=== PATIENT | female | born 1955 | race Caucasian/White ===

== ENCOUNTER 2017-11-07 21:02 | Emergency (ER) | payer BC, SELFPAY ==
[2017-11-07 21:08] VITALS: BP 145/74; PULSE 68; RESP 18; TEMP 36.8; O2SAT 100
== END 2017-11-08 01:25 | disposition left against medical advice (07) ==
PROVIDERS: PCP Physician Assistant Medical
DX: R21 Rash and other nonspecific skin eruption (principal)
CPT/HCPCS: 99281; 99282

== ENCOUNTER → 2020-06-15 16:05 | Outpatient (CLI) | payer BC, SELFPAY | PROVIDERS: Visit Provider Physician Assistant | DX: R30.0 Dysuria (principal); N30.01 Acute cystitis with hematuria | CPT/HCPCS: 87077; 87086; 87147; 87210 ==

== ENCOUNTER → 2020-08-28 17:30 | Outpatient (CLI) | payer BC, SELFPAY ==
--- NOTE | 2020-08-28 17:32 | DI.MRI.S_ITS ---
PROCEDURE: MR THORACIC SPINE WO CON INDICATIONS: PERSONAL HISTORY OF HEALED TRAUMATIC FRACTURE TECHNIQUE: Noncontrast sagittal T1 spine echo and T2 fast spin echo, sagittal STIR, axial T1 and T2 fast spin echo through the thoracic spine. COMPARISON: None. FINDINGS: Image quality: Excellent. Alignment and Curvature: There is mild diffuse thoracic kyphosis. Bone Marrow: Marrow is of normal overall signal there is moderate wedging of the T11 vertebral body which demonstrates linear low T2 signal intensity traversing its inferior endplate, with moderate surrounding ill-defined STIR signal elevation. Spinal Cord: Visualized spinal cord is normal in size and signal. Paraspinous Soft Tissues: No paravertebral masses. Disc space levels: Multilevel disc desiccation is present. At T11-T12, there is mild diffuse disc bulge, causing mild canal stenosis. No significant foraminal stenosis.. IMPRESSION: 1. Moderate subacute T11 compression fracture. Dictated by: Adri Rogers M.D. on 08/31/2020 at 8:41 Approved by: Adri Rogers M.D. on 08/31/2020 at 8:46
== END ==
PROVIDERS: Referring Provider Internal Medicine; Visit Provider Internal Medicine
DX: Z09 Encounter for follow-up examination after completed treatment for conditions other than malignant neoplasm (principal); Z87.81 Personal history of (healed) traumatic fracture; M48.54XA Collapsed vertebra, not elsewhere classified, thoracic region, initial encounter for fracture
CPT/HCPCS: 72146

== ENCOUNTER → 2020-12-07 13:45 | Outpatient (CLI) | payer BC, SELFPAY ==
[2020-12-07 15:54] LABS: COVID19 -Nasal RAPID Negative (Negative)
== END ==
PROVIDERS: Referring Provider Physician Assistant; Visit Provider Physician Assistant
DX: R11.2 Nausea with vomiting, unspecified (principal); Z20.822 Contact with and (suspected) exposure to COVID-19
CPT/HCPCS: 87635

== ENCOUNTER 2022-09-08 08:13 | Day surgery (SDC) | payer BC, MEDICARE, SELFPAY ==
[2022-09-06 11:55] VITALS: BMI 32.7
[2022-09-08] VITALS (12 sets, daily range): BP systolic 97–161; BP diastolic 45–78; PULSE 61–88; RESP 12–18; TEMP 36.1–36.5; O2SAT 93–99; BMI 31.3
--- NOTE | 2022-09-08 | PATH_ITS ---
[facility] Accession Number: [id number] No. of containers..01 Tissue . 01 Material submitted: . uterus - UTERUS, TUBES AND OVARIES . 01 Diagnosis: Uterus, Bilateral Tubes and Bilateral Ovaries, Hysterectomy and Bilateral Salpingo-oophrectomy: Cervix with mild chronic inflammation; no dysplasia or malignancy. Endometrium with features of cystic atrophy; no atypical hyperplasia or malignancy. Unremarkable myometrium. Bilateral ovaries with physiological changes but no other significant diagnostic alterations. Complete cross-section of fimbriated bilateral fallopian tubes identified with no significant pathologic alterations. [facility] 09/13/2022 1530 Local . 01 Electronically signed: . Anay Peña MD, Pathologist NPI- [id number] . 01 Gross description: . The specimen is received in formalin labeled with the patient's name, , and uterus, tubes and ovaries, and consists of an intact uterus (42 grams, 7.0 SI, 4.4 mL, 2.5 APCM), with attached cervix (3.5 x 2.3 cm), with attached left fallopian tube (6.0 x 0.6 cm), and attached left ovary (2 grams, 2.2 x 1.4 x 0.7 cm), attached right fallopian tube (5.9 x 0.7 cm), and attached right ovary (3 grams, 2.9 x 1.5 x 0.7 cm). . The ectocervix is sheth and wrinkled with a slit-like cervical os measuring 0.7 cm in diameter. The serosa is sheth and smooth with a small area of hemorrhage measuring 0.7 cm in greatest dimension and no evidence of adhesion identified. The anterior paracervical margin is inked blue while the posterior paracervical margin is inked black. The endocervical canal measures 2.3 cm in length and has sheth herringbone mucosa. The endometrial cavity measures 1.6 cm from cornu to cornu and 3.6 cm in length with red velvety endometrium that averages 0.1 cm thick with no lesions grossly identified. The myometrium is sheth and trabecular measuring up to 1.1 cm in maximum thickness with no nodules or lesions identified. . The left fallopian tube has congested wrinkled serosa and is significant for an area of thinning measuring 1.5 cm in greatest dimension consistent with a completely disrupted lumen. No cystic structures are identified and sectioning reveals a disrupted stellate lumen. The left ovary has a sheth, cerebriform external surface and sectioning reveals an unremarkable, physiologic cut surface with no cysts or lesions identified. . The right fallopian tube has congested smooth serosa and is significant for an area of narrowing measuring 1.3 cm in greatest dimension possibly consistent with lumninal disruption. A pedunculated cystic structure is identified near the fimbriated end measuring 0.6 cm in greatest dimension. Sectioning reveals a disrupted stellate lumen. The right ovary has a sheth, cerebriform external surface and sectioning reveals an unremarkable, physiologic cut surface with no lesions or cystic structures identified. . [employer] sections are submitted as follows: A1: Anterior cervix. A2: Posterior cervix. A3: Anterior full thickness section. A4: Posterior full thickness section. A5: Serosa with area of hemorrhage. A6: Left fallopian tube to include one-half of bisected fimbriae and cross-sections. A7: Left ovary. A8: Right fallopian tube to include one-half of bisected fimbriae and cross-sections with cystic structure. A9: Right ovary. ([id number]) /PETER 09/09/2022 [facility] Local . 01 Pathologist provided ICD-10: N81.10, N81.6 . 01 CPT . 433056 Specimen Comment: A courtesy copy of this report has been sent to [phone] Performed at: 01 [facility]Pending sale to [facility] [address] [place] [address], [place], [place] [id number] MD Fred Jorge MD Phone: [phone]
[2022-09-08 08:42] LABS: COVID19 -Nasal RAPID Negative (Negative)
[2022-09-08] MEDS: LACTATED RINGERS 1,000 ML 42 ML IV ×2 (08:50→11:28)
[2022-09-08] MEDS: ACETAMINOPHEN 325 MG TABLET 975 MG PO (08:52)
--- NOTE | 2022-09-08 09:19 | PM.PREOP ---
Pre-operative Note COVID-19 Criteria for continued procedure: Non-surgical alternatives not available or appropriate per current SOC Interval Note History & Physical reviewed/Exam performed by Physician: Yes Changes to H&P: Yes H&P completed within 30 days and has changed as indicated here:: 08/23/22
[2022-09-08] MEDS: CEFAZOLIN 2 GM/100 ML PREMIX 100 ML IV (09:31)
--- NOTE | 2022-09-08 10:15 | SUR.OPER ---
Lithotomy on padded OR bed. Smack[place] Pad Positioner under torso. Head on pillow, arms padded and tucked at sides. Legs secured in padded yellow fins stirrups.
[2022-09-08] MEDS: BUPIVACAINE 0.5% (PF) 60 ML, EPINEPHrine 0.3 MG INJ (10:42)
--- NOTE | 2022-09-08 12:13 | PM.GYNOP.1 ---
Operative Date/Time/Diagnoses Date of procedure: 09/08/22 Time of procedure: 12:13 Pre-op diagnosis: Second-degree Uterine prolapse Third-degree cystocele Third-degree rectocele Post-op diagnosis: same Procedure & Clinicians Procedure: Procedures Operation Date: 09/08/22 09:45 Actual Procedure Side Surgeon p Laparoscopic Assisted Vaginal Hysterectomy w. salpingo-oophorectomy Yanira Degroot MD s Anterior/Posterior Repair with perinorraphy Yanira Degroot MD Indications: Symptomatic uterine prolapse, cystocele, and rectocele Surgeon: Yanira Degroot [employer] Courtesy Clerk: Antonette Santos Anesthesia Type: General and Local Operative Notes Findings: 5 week size anteverted uterus Tubes status post ligation bilaterally Normal ovaries Right lower quadrant adhesions Normal liver Closure Type: primary Specimen(s): left tube & ovary, right tube & ovary and uterus Applied: catheter (To continuous drainage) Estimated blood loss (mL): 50 Blood products transfused: none Procedure in detail: The patient was taken to the operating room where she was placed in the dorsal supine position. After adequate general endotracheal anesthesia was achieved, she was placed in the dorsal lithotomy position, and prepped and draped in the usual sterile fashion. A bivalve speculum was placed into the vagina, and a single-tooth tenaculum was placed on the anterior lip of the cervix. The cervical os was sequentially dilated until the ZUMI uterine manipulator could pass easily into the endometrial cavity. The single-tooth tenaculum was removed from the anterior lip of the cervix, and the bivalve speculum was removed from the vagina. Attention was then turned to the abdomen where 6 mL of half percent Marcaine with epinephrine were injected in the umbilical fold. A 5 mm incision was made. The Verees needle was placed into the peritoneal cavity, and its placement confirmed by aspiration and drop test. The abdominal cavity was insufflated with 4.2L of CO2. The Verees needle was removed, and a 5 mm trocar was placed without difficulty. Initial inspection of the pelvis revealed the findings noted above. 2 other incisions were made 4 cm lateral to the umbilicus. These were 5 mm incisions. Two 5mm trocars were placed under direct visualization. The right tube and ovary were grasped with an atraumatic grasper. The infundibulopelvic ligament on the right side was cauterized and cut with plasma kinetic. The round ligament and broad ligament were cauterized and cut. This was continued to the level of the uterine arteries. This was repeated on the patient's left side. The instruments were removed from the abdomen. Attention was then turned to the vagina where the ZUMI uterine manipulator was removed from the uterus. The cervix was grasped with a 4 tooth tenaculum. 10 mL of half percent Marcaine with epinephrine were injected circumferentially around the cervix. The cervix was circumscribed. The bladder and rectum were dissected off the lower uterine segment and cervix with an open moistened Ray-Alex. The peritoneum was entered sharply with the Metzenbaum scissors anteriorly and a Firebaugh placed. The peritoneum was entered posteriorly with the Metzenbaum scissors and the long weighted speculum was placed into the posterior cul-de-sac. The uterosacral cardinal ligament complexes were clamped, transected, and suture ligated with 0 Vicryl. These were attached to hemostat. The uterine arteries were clamped, transected, and suture ligated with 0 Vicryl. The uterus, tubes and ovaries were handed off for specimen. The vaginal cuff was closed with 0 Vicryl with a series of simple interrupted sutures. The tagged sutures were cut. 2 Allis clamps were placed at the apex of the cystocele. 6 mL of half percent Marcaine with epinephrine were injected and an incision was made with a #10 blade between the 2 Allis clamps. Wide Allis clamps were placed on the midline of the cystocele approximately 5. The mucosa was undermined using the Metzenbaum scissors and the mucosa incised in the midline moving the wide Allis clamps to the edges of the mucosa. The mucosa was dissected off the underlying fascia using an open moistened Ray-Alex and a #10 blade. The fascia was reapproximated with 0 Vicryl with a series of horizontal mattress sutures. The excess vaginal mucosa was excised. The mucosa was closed using simple interrupted sutures with 2-0 Vicryl including the underlying fascia to close the space. The weighted speculum was removed from the vagina. Allis clamps were placed at the mucocutaneous junction at the introitus. 6 mL of half percent Marcaine with epinephrine were injected. An incision was made with a #10 blade between the 2 Allis clamps, and a triangular piece of skin and underlying subcutaneous tissue was removed. Allis clamps were placed in the midline of the rectocele. 10 mL of half percent Marcaine with epinephrine were injected submucosally. The mucosa was undermined using the Metzenbaum scissors and the mucosa incised in the midline, moving the wide Allis clamps to the mucosal edges. The underlying fascia was dissected off of the mucosa using an open moistened Ray-Alex and a #10 blade. The fascia was reapproximated using 0 Vicryl with a series of horizontal mattress sutures. The excess vaginal mucosa was excised. The mucosa was closed using a series of simple interrupted sutures with 2-0 Vicryl including the underlying fascia to close the space. On the perineum 0 Vicryl was used to reapproximate the levator muscle. The subcutaneous layer was closed with 2-0 Vicryl. The skin was closed with 2-0 chromic in a subcuticular fashion. Hemostasis was achieved. A Betadine moistened vaginal pack was placed into the vagina. Attention was then turned the where re-insufflated with from back by gapTrendelenburg. The pelvis was examined and there was no bleeding noted. The area was irrigated. The instruments were removed from the abdomen. CO2 was allowed to escape. The trocars were removed. The incisions were closed with 4-0 Monocryl in a subcuticular fashion. Steri-Strips and Allevyn dressings were placed. A rectal exam was done and there were no sutures palpable in the rectum. The urine was clear. Sponge, lap, and instrument counts were correct x-2. The patient tolerated the procedure well, was taken to PACU in stable condition. Complications: none Post-operative Condition: stable Disposition: PACU Plan for aftercare: To acute care after recovery
--- NOTE | 2022-09-08 12:25 | SUR.PHASEI ---
to room 221. Report called to jordyn purcell. all belongings with patient.
[2022-09-08] MEDS: LACTATED RINGERS 1,000 ML 100 ML IV (12:47)
[2022-09-08] MEDS: IBUPROFEN 600 MG TABLET PO ×2 (12:51→17:29)
[2022-09-08] MEDS: ACETAMINOPHEN 325 MG TABLET 650 MG PO ×2 (12:51→17:29)
[2022-09-08] MEDS: OXYCODONE IR 5 MG TABLET PO ×3 (13:18→22:09)
[2022-09-08] MEDS: DOCUSATE 100 MG CAPSULE 200 MG PO (20:45)
[2022-09-08] MEDS: HYDROXYCHLOROQUINE 200 MG TABLET PO (20:45)
[2022-09-09] VITALS: BP 132/68; PULSE 65; RESP 17; TEMP 36.4; O2SAT 96
[2022-09-09] MEDS: IBUPROFEN 600 MG TABLET PO ×2 (00:24→06:16)
[2022-09-09] MEDS: ACETAMINOPHEN 325 MG TABLET 650 MG PO ×2 (00:24→06:16)
[2022-09-09 04:00] VITALS: BP 130/60; PULSE 67; RESP 16; TEMP 36.4; O2SAT 96
[2022-09-09 05:37] LABS: Add Manual Diff / Slide Review NO; Basophils Absolute Auto 0 /uL (0-100); Basophils Percent Auto 0.1 % (0-2); Eosinophils Absolute Auto 0 /uL (0-450); Hematocrit 34.5 % (36-46); Hemoglobin 11.6 g/dL (12.0-16.0); Lymphocytes Absolute Auto 400 /uL (1100-4500); Lymphocytes Percent Auto 3.1 % (25-40); Mean Corpuscular HGB Conc 33.8 % (30-36); Mean Corpuscular Volume 91.8 fL (80-100); Monocytes Absolute Auto 900 /uL (0-900); Monocytes Percent Auto 7.1 % (3-14); Neutrophils Absolute Auto 10800 /uL (1500-7000); Neutrophils Percent Auto 89.7 % (50-75); Platelet Count 188 X10^3/uL (150-400); Red Blood Cell Count 3.76 X10^6/uL (4.0-5.2); Red Cell Distribution Width 13.7 % (11.6-14.8); White Blood Cell Count 12.1 X10^3/uL (4.5-11.0)
[2022-09-09] MEDS: LEVOTHYROXINE 112 MCG TABLET PO (05:56)
[2022-09-09 06:00] LABS: BUN Creatinine Ratio 20.5 (6-22); Blood Urea Nitrogen 18 mg/dL (7-17); Calcium 8.8 mg/dL (8.4-10.2); Carbon Dioxide 25 mmol/L (22-32); Chloride 102 mmol/L (98-107); Estimated Glomerular Filt Rate > 60 mL/min (>60); Glucose 105 mg/dL (80-110); HEMOLYSIS < 15 (0-50); Potassium 4.4 mmol/L (3.4-5.1); Sodium 133 mmol/L (137-145)
--- NOTE | 2022-09-09 06:11 | PC.NURSE ---
0600: Putnam catheter and vaginal packing were removed. Small amount of blood noted on peripad; vaginal packing (1 long strip of gauze) noted with blood. Jena-care provided; pt attempted to void but was unable at this time.
[2022-09-09 08:36] VITALS: BP 125/58; PULSE 65; RESP 16; TEMP 36.3; O2SAT 94
--- NOTE | 2022-09-09 09:20 | PM.DS.1 ---
History of Present Illness History of Present Illness Date Patient Seen: 09/09/22 Time Patient Seen: 09:20 Chief complaint: LAVH w/anterior & posterior repair Narrative: Patient is a 67-year-old 2 para 2 who presents for preoperative exam for a laparoscopic-assisted vaginal hysterectomy with bilateral salpingo-oophorectomy, and an anterior and posterior repair. Discharge Providers Provider Date of admission: 09/08/2022 Discharge Date: 09/09/22 Primary care physician: Deysi Lozano PA-C Discharge provider: Stanley Leroy MD Summary Hospital Course Discharge Diagnosis: Symptomatic uterovaginal prolapse, incomplete Cystocele Rectocele Hospital Course: Ro was admitted on 09/08/2022 and underwent an uneventful laparoscopic-assisted vaginal hysterectomy with bilateral salpingo oophorectomy, anterior colporrhaphy, and posterior colporrhaphy. Details of the procedure well summarized on the operative note of Dr. Ne Degroot dated 09/08/2022. Following her surgery the patient has done extremely well with prompt return of bowel and bladder function, she is ambulating independently, tolerating regular diet, and her pain is well controlled oral pain medication. She will be discharged at this time to home after counseling regarding precautionary symptoms, limitations of activity, medications, and plans for follow-up will be in [address] Degroot. Medications at discharge will include resumption of all pre admission medications as well as oxycodone 5 mg every 4-6 hours as needed for pain. Post-void residual < 50 cc after 2nd spontaneous void following catheter removal. Status at Discharge Cognitive/behavioral status at discharge: oriented Functional status at discharge: independent ambulation Overall status at discharge: patient is progressing back to baseline Time Spent with Patient Time spent: Less than 30 minutes Exam Vital Signs (past 8 hours): - 09/09/22 04:00 09/09/22 08:36 Temperature 97.6 F 97.4 F L Pulse Rate 67 65 Respiratory Rate 16 16 Blood Pressure 130/60 125/58 L Pulse Oximetry 96 94 Oxygen Flow Rate 0 Oxygen Delivery Method Room Air Oxygen Flow Rate 0 Const General: cooperative and comfortable Nutritional Appearance: average body habitus Orientation: alert and oriented x3 HENMT Head: normal to inspection, atraumatic and abrasion Ears: hearing grossly normal bilaterally Face and sinus: face symmetric Eyes General: appearance normal, both eyes and all related structures Conjunctivae: conjunctivae normal Sclera: sclerae normal EOM: EOM intact bilaterally Neck Neck: normal visual inspection Resp Effort & Inspection: normal respiratory effort and able to speak in complete sentences Auscultation: clear to auscultation bilaterally Cardio Rate: regular rate Rhythm: regular rhythm Heart Sounds: S1 normal, S2 normal and no murmurs GI Inspection: normal to inspection and incision (Surgical dressings clean and dry) Palpation: soft, no hepatosplenomegaly and tender (Mild, diffuse postsurgical tenderness) External Female Exam: other (No significant bleeding noted) Extrem General: no calf tenderness Psych Appearance: grossly normal Mental Status: mental status grossly normal Speech and Movement: speech and movement normal Mood: congruent mood Affect: normal affect Attitude: cooperative Thought Process: normal Thought Content: normal Judgment: judgment good Objective Labs 09/09/22 04:55 09/09/22 04:55 Labs: Laboratory Results - last 24 hr 09/09/22 09/09/22 04:55 04:55 WBC 12.1 H RBC 3.76 L Hgb 11.6 L Hct 34.5 L MCV 91.8 MCH 31.0 MCHC 33.8 RDW 13.7 Plt Count 188 Neut % (Auto) 89.7 H Lymph % (Auto) 3.1 L [place] % (Auto) 7.1 Eos % (Auto) 0.0 L Baso % (Auto) 0.1 Neut # (Auto) 39065 H Lymph # (Auto) 400 L [place] # (Auto) 900 Eos # (Auto) 0 Baso # (Auto) 0 Sodium 133 L Potassium 4.4 Chloride 102 Carbon Dioxide 25 BUN 18 H Creatinine 0.88 Estimated GFR > 60 BUN/Creatinine Ratio 20.5 Glucose 105 Calcium 8.8 PFSH Medical History (Updated 07/21/22 @ 16:13 by Yanira Degroot MD) Back strain Sjogren's disease UTI (urinary tract infection) Wears glasses Surgical History (Updated 07/21/22 @ 16:12 by Yanira Degroot MD) Anesthesia Breast cyst History of appendectomy History of back surgery History of cholecystectomy History of ear surgery History of hand surgery Family History (Updated 02/08/22 @ 20:07 by Sarah Crews) Father Hypertension Mother Hypertension Stroke Sister Diabetes mellitus Sister History of heart disease Social History household members: spouse Smoking Status: Never smoker alcohol intake: never Discharge Assessment & Plan Assessment and Plan Assessment: Status post laparoscopic-assisted vaginal hysterectomy and bilateral salpingo-oophorectomy with anterior colporrhaphy and posterior colporrhaphy Symptomatic uterovaginal prolapse, incomplete Cystocele Rectocele Plan of Treatment: Routine postoperative care with follow-up planned for 2 weeks postop. Discharge Plan Discharge Plan Patient Disposition: Home Provider Discharge Comment: Call with fever, chills, redness or drainage around incision, or bleeding vaginally more than spotting to light Ibuprofen 600 mg every 6 hours as needed Tylenol 650 mg every 6 hours as needed For softeners as needed Discharge orders & Medications Discharge Orders: Discharge (Order); Ordered 09/09/22 Ordered By: Stanley Leroy Prescriptions: New oxycodone 5 mg tablet 5 mg PO Q4H PRN (Reason: pain) Qty: 20 0RF Continued aspirin 81 mg tablet,delayed release (DR/EC) 81 mg PO DAILY levothyroxine [Synthroid] 112 mcg tablet 112 mcg PO DAILY cholecalciferol (vitamin D3) 125 mcg (5,000 unit) capsule 125 mcg PO DAILY hydroxychloroquine 200 mg tablet 200 mg PO BID metoprolol tartrate 100 mg tablet 50 mg PO DAILY Discontinued estradiol 0.01 % (0.1 mg/gram) cream 1 g vaginal 3XW Qty: 42.5 1RF Medication counseling provided by Pharmacist: Yes Follow up/Referrals: Yanira Degroot MD [Physician] - (Post op visits already scheduled) Diet/Activity/Treatments Diet: Regular Activity: No heavy lifting Nothing in the vagina Skin/Wound/Dressing Care Report to your healthcare provider any signs of infection, such as:: chills, fever, increased pain, unusual drainage and unusual redness Dressing: Remove outer pink dressings with attached guaze in 3 days May shower daily Leave steri strips in place Visit Report/Discharge Packet Instructions: DI for Hysterectomy, DI for Laparoscopy, DI for Prescription Opioid Use, DI for Vaginal Hysterectomy Stand Alone Forms: Patient Portal/API, Surgery Discharge Discharge Data Primary Care Provider: Deysi Lozano Attending Provider: Yanira Degroot Quality VTE Deep Vein Thrombosis/Pulmonary Embolism Present on Admission: No
[2022-09-09] MEDS: HYDROXYCHLOROQUINE 200 MG TABLET PO (09:27)
[2022-09-09] MEDS: DOCUSATE 100 MG CAPSULE 200 MG PO (09:27)
[2022-09-09] MEDS: OXYCODONE IR 5 MG TABLET PO (09:28)
[2022-09-09] MEDS: METOPROLOL IR 50 MG TABLET PO (09:28)
[2022-09-09] MEDS: ONDANSETRON 4 MG/2 ML INJ IV (10:24)
[2022-09-09 12:55] VITALS: BP 147/60; PULSE 63; RESP 17; TEMP 36.1; O2SAT 95
--- NOTE | 2022-09-09 13:08 | PC.NURSE ---
approx.1240 updated , patient urinating well , cleared to d/c home
== END 2022-09-09 13:07 | disposition home or self-care (01) ==
LOC: OR 08:14 → AC 08:14
PROVIDERS: PCP Physician Assistant Medical; Referring Provider Obstetrics & Gynecology; Visit Provider Obstetrics & Gynecology
PROC: 0UT9FZZ Resection of Uterus, Via Natural or Artificial Opening With Percutaneous Endoscopic Assistance (ICD-10-PCS; CPT 58552; principal; 2022-09-08 09:45)
PROC: (CPT 58552; 2022-09-08 09:45)
DX: N81.2 Incomplete uterovaginal prolapse (principal); N81.6 Rectocele; Z20.822 Contact with and (suspected) exposure to COVID-19
CPT/HCPCS: 58552; 57260; 36415; 80048; 85025; 87635; C9803; J0171; J0690; J1100; J2405; J2704; J3010; J3490

== ENCOUNTER → 2022-10-19 15:38 | Outpatient (CLI) | payer BC, MEDICARE, SELFPAY ==
[2022-09-08 12:49] VITALS: BMI 31.3
== END ==
PROVIDERS: PCP Physician Assistant Medical; Visit Provider Obstetrics & Gynecology
DX: R30.0 Dysuria (principal)
CPT/HCPCS: 87077; 87086; 87186